=== PATIENT | female | born 1950 | race Caucasian/White ===

== ENCOUNTER 2016-04-27 12:35 | Observation (INO) | payer MEDICARE, OTHER ==
[~2016-04-27] VITALS: Ht 172.7 cm; Wt 89.8 kg
[2016-04-27 12:46] LABS: BASOPHILS % (AUTO) 0 % (0-10); EOSINOPHILS # (AUTO) 0.1 10^3/uL (0.0-0.3); EOSINOPHILS % (AUTO) 1 % (0-10); LYMPHOCYTES # (AUTO) 0.4 X 10^3 (1.0-4.0); LYMPHOCYTES % (AUTO) 4 % (12-44); MEAN CORPUSCULAR HEMOGLOBIN 26 PG (25-34); MEAN CORPUSCULAR HGB CONC 32 G/DL (32-36); MEAN CORPUSCULAR VOLUME 82 FL (80-99); MONOCYTES # (AUTO) 0.5 X 10^3 (0.0-1.0); MONOCYTES % (AUTO) 6 % (0-12); NEUTROPHILS % (AUTO) 88 % (42-75); PLATELET COUNT 250 10^3/uL (130-400); RED BLOOD COUNT 3.07 10^6/uL (4.35-5.85); RED CELL DISTRIBUTION WIDTH 17.2 % (10.0-14.5); WHITE BLOOD COUNT 7.9 10^3/uL (4.3-11.0)
--- NOTE | 2016-04-27 12:50 | Diagnostic Imaging Report ---
EXAM: CT HEAD WO-R/O STROKE INDICATION: Stroke. COMPARISON: None. FINDINGS: Large area of encephalomalacia in the right occipital and posterior temporal lobes. Chronic lacunar infarcts in the basal ganglia bilaterally. Low-attenuation region in the right cerebellar hemisphere is age-indeterminate. Generalized cerebral and cerebellar parenchymal volume loss. Moderate leukoaraiosis. No intracranial hemorrhage, mass effect, hydrocephalus or extra-axial fluid collections. The paranasal sinuses and mastoid air cells are unremarkable. IMPRESSION: 1. Low-attenuation region in the right cerebellar hemisphere is age-indeterminate and could represent an acute or chronic infarct. 2. Numerous chronic infarcts, the largest within the right occipital and posterior temporal lobes. 3. No evidence of intracranial hemorrhage. Dictated by: Dictated on workstation # [id number]
--- NOTE | 2016-04-27 12:50 | Diagnostic Imaging Report ---
EXAM: Postoperative upright radiograph of the chest. INDICATION: Confusion. FINDINGS: The heart size is moderately enlarged. There is mild pulmonary vascular congestion. There is no effusion or pneumothorax. The mediastinum and chung appear unremarkable. There is a pacemaker with 2 leads seen. IMPRESSION: Cardiomegaly with pulmonary vascular congestion. Dictated by: Dictated on workstation # [id number]
[2016-04-27 13:06] LABS: ALANINE AMINOTRANSFERASE 11 U/L (0-55); ALBUMIN 3.6 G/DL (3.2-4.5); ANION GAP 10 MMOL/L (5-14); ASPARTATE AMINO TRANSFERASE 19 U/L (5-34); BILIRUBIN,TOTAL 1.1 MG/DL (0.1-1.0); BLOOD UREA NITROGEN 22 MG/DL (7-18); BUN/CREATININE RATIO 21; CALCIUM 9.3 MG/DL (8.5-10.1); CARBON DIOXIDE 27 MMOL/L (21-32); CHLORIDE 99 MMOL/L (98-107); CREATININE SERUM 1.05 MG/DL (0.60-1.30); GFR ESTIMATED 52; GLUCOSE 186 MG/DL (70-105); POTASSIUM 4.2 MMOL/L (3.6-5.0); SODIUM 136 MMOL/L (135-145); TOTAL PROTEIN 6.7 G/DL (6.4-8.2)
[2016-04-27 13:09] LABS: INR 1.1 (0.8-1.4); PROTHROMBIN TIME PATIENT 13.8 SEC (12.2-14.7)
[2016-04-27 13:11] LABS: TROPONIN I < 0.30 NG/ML (<0.30)
[2016-04-27 13:13] LABS: BAND NEUTROPHILS 1 %; BASOPHILS % (MANUAL) 1 %; EOSINOPHILS % (MANUAL) 5 %; LYMPHOCYTES % (MANUAL) 5 %; NEUTROPHILS % (MANUAL) 80 %
[2016-04-27 13:14] LABS: ANISOCYTOSIS SLIGHT; MICROCYTOSIS SLIGHT
--- NOTE | 2016-04-27 13:20 | ED Neurological Problem ---
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 EMS reports pt was found in her car outside of her home. Pt was found to be confused w/ L sided weakness noted. EMS states pt was unable to open her eyes during their initial assessment and was unable to answer questions appropriately. EMS also reports initial o2 saturation in the 70s. Pt wears 4L of o2 at all times and states she has been having problems with her portable machine. Upon arrival to ED, pt alert and responding appropriately to questions. Pt denies any c/o. Last known well time 1125. Nursing Sepsis Screen: No Definite Risk Source: patient, EMS, old records Exam Limitations: no limitations History of Present Illness Time seen by provider: 12:38 Initial Comments This 65-year-old woman presents to the emergency room with concern for possible stroke. She was found to have altered mental status and left-sided weakness by her neighbor. She was sitting in the car at the time. Her last known well time was 11:25. She had been shopping with a friend prior to the event. She had also been to a long term to visit a friend earlier in the morning. She had some trouble with her oxygen tank while at the long term and someone there helped her adjust it. She normally uses 4 L by nasal cannula continuously. EMS removed her oxygen and placed her in the ambulance. They placed her on 3 L per nasal cannula and found her oxygen saturation to be 76 percent and rising. Fingerstick blood sugar for EMS was 181. Patient is a fairly poor historian and cannot recall many details about her medical history or her medications. Her sister, who is a nurse, eventually arrived and provided much more detail. Her primary care provider is Dr. Chamorro and her steel pickler is Dr. Chin. Allergies and Home Medications Allergies Coded Allergies: No Known Drug Allergies (Unverified , 04/27/16) Home Medications Amlodipine Besylate 10 Mg Tablet 10 MG PO DAILY (Reported) LAST FILLED 03/13/16 #30 Aspirin 81 Mg Tablet.dr 81 MG PO DAILY (Reported) Carvedilol 25 Mg Tablet 25 MG PO BID (Reported) LAST FILLED 03/13/16 #60 Clopidogrel Bisulfate 75 Mg Tablet 75 MG PO DAILY (Reported) Doxazosin Mesylate 4 Mg Tablet 2 MG PO BID (Reported) TAKES 1/2 OF A (4 MG) TABLET Folic Acid 1 Mg Tablet 1 MG PO DAILY (Reported) Hydralazine HCl 50 Mg Tablet 50 MG PO TID (Reported) HOLD FOR SBP < 130 Hydrochlorothiazide 12.5 Mg Tablet 12.5 MG PO DAILY (Reported) Isosorbide Mononitrate 60 Mg Tab 60 MG PO DAILY (Reported) LAST FILLED 03/01/16 #30 / HOLD FOR SBP < 120 Potassium Chloride 20 Meq Tablet.er 20 MEQ PO DAILY (Reported) LAST FILLED 03/20/16 #30 Ranitidine HCl 150 Mg Tablet 150 MG PO BID (Reported) LAST FILLED 03/21/16 #60 Sotalol HCl 80 Mg Tablet 80 MG PO BID (Reported) Constitutional: no symptoms reported Eyes: No Symptoms Reported Ears, Nose, Mouth, Throat: no symptoms reported Respiratory: see HPI Cardiovascular: no symptoms reported Gastrointestinal: no symptoms reported Genitourinary: no symptoms reported Musculoskeletal: no symptoms reported Skin: no symptoms reported Psychiatric/Neurological: See HPI Endocrine: No Symptoms Reported Past Tdevrlm-Krxavq-Xgdavm Hx Patient Social History Alcohol Use: Denies Use Recreational Drug Use: No Smoking Status: Former Smoker Recent Foreign Travel: No Contact w/Someone Who Travel: No Recent Infectious Disease Expo: No Recent Hopitalizations: No Seasonal Allergies Seasonal Allergies: No Surgeries HX Surgeries: Yes Surgeries: Appendectomy, Coronary Stent, Gallbladder, Pacemaker, Tonsillectomy , Vascular Surgery (right CEA) Respiratory Hx Respiratory Disorders: Yes (wears 4L o2 @ all times, tobaccoism) Cardiovascular Hx Cardiac Disorders: Yes (pacemaker) Cardiac Disorders: Coronary Artery Disease, Peripheral Vascular (carotid artery disease status post right CEA) Neurological Hx Neurological Disorders: Yes Neurological Disorders: Stroke Reproductive System Hx Reproductive Disorders: No Genitourinary Hx Genitourinary Disorders: No Gastrointestinal Hx Gastrointestinal Disorders: No Musculoskeletal Hx Musculoskeletal Disorders: No Endocrine Hx Endocrine Disorders: Yes Endocrine Disorders: Diabetes, Non-Insulin dep HEENT HX ENT Disorders: No Cancer Hx Cancer: No Psychosocial Hx Psychiatric Problems: No Blood Transfusions Hx Blood Disorders: No Physical Exam Vital Signs Vital Sign - Last 12Hours 04/27/16 04/27/16 12:35 12:49 Temp 97.7 Pulse 74 Resp 20 B/P 142/39 Pulse Ox 94 O2 Delivery Nasal Cannula O2 Flow Rate 4 Capillary Refill : Less Than 3 Seconds General Appearance: WD/WN no apparent distress HEENT: PERRL/EOMI normal ENT inspection pharynx normal Neck: normal inspection Respiratory: lungs clear normal breath sounds no respiratory distress no accessory muscle use Cardiovascular: regular rate, rhythm no edema no murmur Gastrointestinal: normal bowel sounds non tender soft Extremities: normal inspection no pedal edema 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 no motor/sensory deficits alert normal mood/affect oriented x 3 Crainal Nerves: normal hearing normal speech PERRL Coordination/Gait: normal finger to nose Motor/Sensory: no motor deficit no sensory deficit Skin: normal color warm/dry Stroke NIH Stroke Scale Assessment Select: Initial Level of Consciousness: 0=Alert Level of Consciousness-Questio: 0=Answers both month/age LOC Commands: 0=Performs both tasks Gaze: 0=Normal Visual Omer: 0=No visual loss Facial Movement (Facial Paresi: 0=Normal symmetrical mnt Motor Function-Arms Right: 0=No drift Motor Function-Arms Left: 0=No drift Motor Function-Legs Right: 0=No drift Motor Function-Legs Left: 0=No drift Limb Ataxia: 0=Absent Sensory: 0=Normal:no loss Best Language: 0=No aphasia Dysarthria: 0=Normal Extinction & Inattention: 0=No abnormality NIH Stroke Scale Score: 0 Focused Exam Lactic Acid Level Laboratory Tests Test 04/27/16 12:35 Alanine Aminotransferase (ALT/SGPT) 11U/L (0-55) Albumin 3.6G/DL (3.2-4.5) Alkaline Phosphatase 120U/L (40-136) Anion Gap 10MMOL/L (5-14) Aspartate Amino Transf (AST/SGOT) 19U/L (5-34) B-Type Natriuretic Peptide 238.1PG/ML (<100.0) H BUN/Creatinine Ratio 21 Blood Urea Nitrogen 22MG/DL (7-18) H C-Reactive Protein High Sensitivity 1.33MG/DL (0.00-0.50) H Calcium Level 9.3MG/DL (8.5-10.1) Carbon Dioxide Level 27MMOL/L (21-32) Chloride Level 99MMOL/L (98-107) Creatinine 1.05MG/DL (0.60-1.30) Estimat Glomerular Filtration Rate 52 Glucose Level 186MG/DL (70-105) H Potassium Level 4.2MMOL/L (3.6-5.0) Sodium Level 136MMOL/L (135-145) Total Bilirubin 1.1MG/DL (0.1-1.0) H Total Protein 6.7G/DL (6.4-8.2) Troponin I < 0.30NG/ML (<0.30) Progress/Results/Core Measures Results/Orders Lab Results Laboratory Tests Test 04/27/16 12:35 04/27/16 12:54 04/27/16 13:19 Range/Units Alanine Aminotransferase (ALT/SGPT) 11 0-55 U/L Albumin 3.6 3.2-4.5 G/DL Alkaline Phosphatase 120 40-136 U/L Anion Gap 10 5-14 MMOL/L Anisocytosis SLIGHT Aspartate Amino Transf (AST/SGOT) 19 5-34 U/L B-Type Natriuretic Peptide 238.1 H <100.0 PG/ML BUN/Creatinine Ratio 21 Band Neutrophils 1 % Basophils # (Auto) 0.0 0.0-0.1 10^3/uL Basophils % (Manual) 1 % Basophils (%) (Auto) 0 0-10 % Blood Urea Nitrogen 22 H 7-18 MG/DL C-Reactive Protein High Sensitivity 1.33 H 0.00-0.50 MG/DL Calcium Level 9.3 8.5-10.1 MG/DL Carbon Dioxide Level 27 21-32 MMOL/L Chloride Level 99 98-107 MMOL/L Creatinine 1.05 0.60-1.30 MG/DL Elliptocytes SLIGHT Eosinophils # (Auto) 0.1 0.0-0.3 10^3/uL Eosinophils % (Manual) 5 % Eosinophils (%) (Auto) 1 0-10 % Estimat Glomerular Filtration Rate 52 Glucose Level 186 H 70-105 MG/DL Hematocrit 25 L 35-52 % Hemoglobin 8.0 L 11.5-16.0 G/DL Lymphocytes # (Auto) 0.4 L 1.0-4.0 X 10^3 Lymphocytes % (Manual) 5 % Lymphocytes (%) (Auto) 4 L 12-44 % Mean Corpuscular Hemoglobin 26 25-34 PG Mean Corpuscular Hemoglobin Concent 32 32-36 G/DL Mean Corpuscular Volume 82 80-99 FL Mean Platelet Volume 9.0 7.4-10.4 FL Microcytosis SLIGHT Monocytes # (Auto) 0.5 0.0-1.0 X 10^3 Monocytes % (Manual) 8 % Monocytes (%) (Auto) 6 0-12 % Neutrophils # (Auto) 7.0 1.8-7.8 X 10^3 Neutrophils % (Manual) 80 % Neutrophils (%) (Auto) 88 H 42-75 % Platelet Count 250 130-400 10^3/uL Potassium Level 4.2 3.6-5.0 MMOL/L Red Blood Count 3.07 L 4.35-5.85 10^6/uL Red Cell Distribution Width 17.2 H 10.0-14.5 % Sodium Level 136 135-145 MMOL/L Total Bilirubin 1.1 H 0.1-1.0 MG/DL Total Protein 6.7 6.4-8.2 G/DL Troponin I < 0.30 <0.30 NG/ML White Blood Count 7.9 4.3-11.0 10^3/uL Activated Partial Thromboplast Time 20 L 24-35 SEC D-Dimer 1.04 H 0.00-0.49 UG/ML INR Comment 1.1 0.8-1.4 Prothrombin Time 13.8 12.2-14.7 SEC Urine Bacteria TRACE /HPF Urine Bilirubin NEGATIVE NEGATIVE Urine Casts NONE /LPF Urine Clarity CLEAR Urine Color YELLOW Urine Crystals NONE /LPF Urine Culture Indicated NO Urine Glucose (UA) NEGATIVE NEGATIVE Urine Ketones NEGATIVE NEGATIVE Urine Leukocyte Esterase 1+ H NEGATIVE Urine Mucus NEGATIVE /LPF Urine Nitrite NEGATIVE NEGATIVE Urine Protein 3+ H NEGATIVE Urine RBC NONE /HPF Urine RBC (Auto) NEGATIVE NEGATIVE Urine Specific Roland 1.020 1.016-1.022 Urine Squamous Epithelial Cells 2-5 /HPF Urine Urobilinogen 1 NORMAL MG/DL Urine WBC 0-2 /HPF Urine pH 5 5-9 My Orders Orders-NATHALY ANTHONY MD Ct Head Wo-R/O Stroke (04/27/16 12:38) Cbc With Automated Diff (04/27/16 12:38) Protime With Inr (04/27/16 12:38) Partial Thromboplastin Time (04/27/16 12:38) Comprehensive Metabolic Panel (04/27/16 12:38) Fibrin Degradation Products (04/27/16 12:38) Troponin I (04/27/16 12:38) Ua Culture If Indicated (04/27/16 12:38) Chest 1 View, Ap/Pa Only (04/27/16 12:38) Ekg Tracing (04/27/16 12:38) Nothing By Mouth (04/27/16 Dinner) Accucheck Stat ONCE (04/27/16 12:38) Saline Lock/Iv-Start (04/27/16 12:38) Saline Lock/Iv-Start (04/27/16 12:38) Vital Signs-Stroke Q1H (04/27/16 12:38) O2 (04/27/16 12:38) Intake & Output 06,14,22 (04/27/16 12:38) Monitor-Rhythm Ecg Trace Only (04/27/16 12:38) Dysphagia Screening Tool (04/27/16 12:38) Manual Differential (04/27/16 12:35) BNP (04/27/16 13:21) Hs C Reactive Protein (04/27/16 13:21) Us Carotid Luis Complete [id number] (04/27/16 14:05) Furosemide Injection (Lasix Injection) (04/27/16 15:45) Aspirin Tablet (Aspirin Tablet) (04/27/16 15:45) Amlodipine Tablet (Norvasc Tablet) (04/27/16 16:00) Doxazosin Tablet (Cardura Tablet) (04/27/16 16:00) Isosorbide Mononitrate Tablet (Imdur Tab (04/27/16 16:00) Amlodipine Tablet (Norvasc Tablet) (04/27/16 16:00) Medications Given in ED Vital Signs/I&O Vital Sign - Last 12Hours 04/27/16 04/27/16 04/27/16 12:35 12:49 16:50 Temp 97.7 Pulse 74 76 Resp 20 18 B/P 142/39 Pulse Ox 94 94 98 O2 Delivery Nasal Cannula Nasal Cannula O2 Flow Rate 4 4 Blood Pressure Mean: 73 Progress Note : Time: 15:51 Progress Note Stroke activation was paged when the patient arrived. She was taken immediately to CT scan. CT showed a possible cerebellar infarct. No definite acute changes and no hemorrhages were noted. NIH stroke score was zero. Dr. Serna, [facility] stroke neurologist, was consulted by phone. He suggested MRI would be appropriate at this point. Because the cerebellar infarct appeared to be subacute (already visible on CT) patient was not a TPA candidate, especially since her stroke score was zero. Patient reported she has history of carotid stenosis and is to see a vascular surgeon or Dr. Chin soon to have her carotids reevaluated. For this reason bilateral carotid ultrasounds were performed. No significant stenosis was identified. Patient has not taken her medications this morning. Aspirin was administered in the ER. Pulmonary congestion was noted on chest x-ray along with elevated BNP. IV Lasix was therefore ordered. Patient was becoming increasingly hypertensive. Again, she has not taken her morning medications. As her medication list was confirmed by the pharmacy district manager, her oral medications were ordered including doxazosin 2 mg, isosorbide mononitrate 60 mg, and amlodipine [address] Herrera was agreeable to admission for observation. She agreed with MRI. She requested consultation with Dr. Pastrana. Case was discussed with Dr. Pastrana at 16:00. He agrees with the medications ordered to be given in the emergency room and is agreeable to consultation. Patient had no further neurologic events while in the emergency room. The left-sided weakness appeared to be transient and was only observed by EMS staff. It seemed to correlate with her hypoxia which may have exacerbated symptoms of old stroke evident on CT. Patient has had no Plavix or aspirin in 24 hours. Aspirin was administered in the ER. ECG Initial ECG Impression Date: Apr 27, 2016 Initial ECG Impression Time: 12:50 Initial ECG Rate: 76 Initial ECG Rhythm: Normal Sinus Initial ECG Intervals First-degree AV block with MI interval greater than 220 Comment Sinus rhythm with no ST elevation or depression. PAC noted. Borderline prolonged QT and first-degree AV block. Diagnostic Imaging Diagonstic Imaging: CT Plain Films/CT/US/NM/MRI: head Comments CT head viewed by me and report reviewed. See report below: NAME: TRISTON LLOYD [facility] REC#: [id number] PT STATUS: REG ER : 1950 PHYSICIAN: NATHALY ANTHONY MD ADMIT DATE: 04/27/16/ER Draft Date of Exam:04/27/16 CT HEAD WO-R/O STROKE EXAM: CT HEAD WO-R/O STROKE INDICATION: Stroke. COMPARISON: None. FINDINGS: Large area of encephalomalacia in the right occipital and posterior temporal lobes. Chronic lacunar infarcts in the basal ganglia bilaterally. Low-attenuation region in the right cerebellar hemisphere is age-indeterminate. Generalized cerebral and cerebellar parenchymal volume loss. Moderate leukoaraiosis. No intracranial hemorrhage, mass effect, hydrocephalus or extra-axial fluid collections. The paranasal sinuses and mastoid air cells are unremarkable. IMPRESSION: 1. Low-attenuation region in the right cerebellar hemisphere is age-indeterminate and could represent an acute or chronic infarct. 2. Numerous chronic infarcts, the largest within the right occipital and posterior temporal lobes. 3. No evidence of intracranial hemorrhage. Dictated on workstation # [id number] Dict: 04/27/16 1242 Trans: 04/27/16 1249 [id number] Interpreted by: NAYAN BORRERO MD Diagonstic Imaging: Xray Plain Films/CT/US/NM/MRI: chest Comments Chest x-ray viewed by me and report reviewed. See report below: NAME: TRISTON LLOYD [facility] REC#: [id number] PT STATUS: REG ER : 1950 PHYSICIAN: NATHALY ANTHONY MD ADMIT DATE: 04/27/16/ER Signed Date of Exam:04/27/16 CHEST 1 VIEW, AP/PA ONLY EXAM: Postoperative upright radiograph of the chest. INDICATION: Confusion. FINDINGS: The heart size is moderately enlarged. There is mild pulmonary vascular congestion. There is no effusion or pneumothorax. The mediastinum and chung appear unremarkable. There is a pacemaker with 2 leads seen. IMPRESSION: Cardiomegaly with pulmonary vascular congestion. Dictated by: Dictated on workstation # [id number] Dict: 04/27/16 1246 Trans: 04/27/16 1304 [id number] Interpreted by: RAGHAV LÓPEZ MD Electronically signed by: RAGHAV LÓPEZ MD 04/27/16 1304 Diagonstic Imaging: Ultrasound Plain Films/CT/US/NM/MRI: other (carotid ultrasound) Comments Bilateral carotid ultrasound discussed with the renal technician and report reviewed. See report below: NAME: TRISTON LOLYD [facility] REC#: [id number] PT STATUS: REG ER : 1950 PHYSICIAN: NATHALY ANTHONY MD ADMIT DATE: 04/27/16/ER Draft Date of Exam:04/27/16 US CAROTID LUIS COMPLETE [id number] PROCEDURE: US Carotid Duplex Bilateral. TECHNIQUE: Multiple real-time grayscale images were obtained over the carotid arteries in various projections bilaterally. Additional duplex Doppler and color Doppler images were also obtained. INDICATION: Confusion, arm weakness. FINDINGS: There is generally mild mixed plaque seen in the internal carotid arteries on both sides. Color Doppler demonstrate patent common, internal, and external carotid arteries bilaterally. There is antegrade flow seen in the vertebral artery on both sides. Peak systolic velocities in the right ICA are 106, 107, and 107 cm/s, and the left is 141, 122, and 98 cm/s from proximal/ distal. ICA/CCA ratios are up to 0.9 on the right and 0.9 on the left. There is note of elevated velocity in the proximal left external carotid artery to 155 cm/s suggestive of underlying moderate stenosis. IMPRESSION: Atherosclerotic plaque is seen in the internal carotid arteries with estimated underlying stenosis below 40% bilaterally. Dictated on workstation # [id number] Dict: 04/27/16 1440 Trans: 04/27/16 1449 [id number] Interpreted by: RAGHAV LÓPEZ MD Departure Communication Time/Spoke to Admitting Phy: 14:56 Communication Case was reviewed with Dr. Herrera who request consultation with Dr. Pastrana. She agrees with admission for observation and MRI. Time/Spoke to Consulting Physi: 15:00 Communication/Consulting Case reviewed with Dr. Pastrana who is agreeable to consultation and agrees with therapies for pulmonary congestion and hypertension. Impression Impression: Primary Impression: Hypoxia Additional Impressions: transient left-sided weakness Anemia Qualified Code: D64.9 - Anemia, unspecified Pulmonary congestion Hypertensive urgency Disposition: ADMITTED INPATIENT Condition: Improved Decision to Admit Reason: Admit from ER (General) Decision to Admit/Date: Apr 29, 2016 Time/Decision to Admit Time: 14:56 Departure-Patient Inst. Referrals: CAMILO CHAMORRO MD (PCP/Family) Primary Care Physician NATHALY ANTHONY MD Apr 27, 2016 13:20
[2016-04-27 13:28] LABS: BILIRUBIN,URINE NEGATIVE (NEGATIVE); KETONES,URINE NEGATIVE (NEGATIVE); LEUKOCYTE ESTERASE ,URINE 1+ (NEGATIVE); NITRITE,URINE NEGATIVE (NEGATIVE); PH,URINE 5 (5-9); PROTEIN,URINE 3+ (NEGATIVE); UROBILINOGEN,URINE 1 MG/DL (NORMAL)
[2016-04-27 13:40] LABS: WBC,URINE 0-2 /HPF
--- NOTE | 2016-04-27 14:50 | Diagnostic Imaging Report ---
PROCEDURE: US Carotid Duplex Bilateral. TECHNIQUE: Multiple real-time grayscale images were obtained over the carotid arteries in various projections bilaterally. Additional duplex Doppler and color Doppler images were also obtained. INDICATION: Confusion, arm weakness. FINDINGS: There is generally mild mixed plaque seen in the internal carotid arteries on both sides. Color Doppler demonstrate patent common, internal, and external carotid arteries bilaterally. There is antegrade flow seen in the vertebral artery on both sides. Peak systolic velocities in the right ICA are 106, 107, and 107 cm/s, and the left is 141, 122, and 98 cm/s from proximal/ distal. ICA/CCA ratios are up to 0.9 on the right and 0.9 on the left. There is note of elevated velocity in the proximal left external carotid artery to 155 cm/s suggestive of underlying moderate stenosis. IMPRESSION: Atherosclerotic plaque is seen in the internal carotid arteries with estimated underlying stenosis below 40% bilaterally. Dictated by: Dictated on workstation # [id number]
[2016-04-27] MEDS ORDERED: SOTA80TA PO (15:14)
[2016-04-27] MEDS ORDERED: HYDR12.56 PO (15:14)
[2016-04-27] MEDS ORDERED: POTA-51 PO (15:14)
[2016-04-27] MEDS ORDERED: METF500T4 PO (15:14)
[2016-04-27] MEDS ORDERED: FOLI1TAB24 PO (15:14)
[2016-04-27] MEDS ORDERED: CLOP75TA28 PO (15:14)
[2016-04-27] MEDS ORDERED: RANI150T11 PO (15:14)
[2016-04-27] MEDS ORDERED: HYDR-3924 PO (15:14)
[2016-04-27] MEDS ORDERED: AMLO10TA2 PO (15:37)
[2016-04-27] MEDS ORDERED: CARV25TA PO (15:37)
[2016-04-27] MEDS ORDERED: ISM60TCR PO (15:37)
[2016-04-27] MEDS ORDERED: DOXA4TAB2 PO (15:37)
[2016-04-27] MEDS ORDERED: ASPIRIN 325 MG (5 GR) TABLET PO ONE (15:45)
[2016-04-27] MEDS ORDERED: FUROSEMIDE 40 MG/4 ML INJ (LASIX) IVP ONE (15:45)
[2016-04-27] MEDS ORDERED: ASPI-983 PO (15:53)
[2016-04-27] MEDS ORDERED: amLODIPine 5 MG (NORVASC) TAB PO ONE ×2 (16:00)
[2016-04-27] MEDS ORDERED: ISOSORBIDE MONONITRATE 60 MG (IMDUR) TAB PO ONE (16:00)
[2016-04-27] MEDS ORDERED: doxAzosin 2 MG (CARDURA) TAB PO ONE (16:00)
[2016-04-27] MEDS ORDERED: CATHETER FLUSH 10 ML SYR IV PRN (17:15)
[2016-04-27] MEDS ORDERED: FLU TRIvalent (5 YOA+) 2016-17 (AFLURIA) 0.5 ML IM ONE (19:45)
[2016-04-27 20:23] VITALS: BP 163/48
[2016-04-27] MEDS ORDERED: NON-FORMULARY MEDICATION 1 EA EA (Hydralazine HCl 50 MG) PO SCH (21:00)
[2016-04-27] MEDS ORDERED: NON-FORMULARY MEDICATION 1 EA EA (Carvedilol 25 MG) PO SCH (21:00)
[2016-04-27] MEDS: hydrALAZINE (APRESOLINE) 25 MG TAB PO SCH (21:02)
[2016-04-27] MEDS: CARVEDILOL 12.5 MG (COREG) TABLET PO SCH (21:03)
[2016-04-27] MEDS: CATHETER FLUSH 10 ML SYR IV SCH (21:07)
[2016-04-28] VITALS: BP 140/42
[2016-04-28 04:00] VITALS: BP 138/61
[2016-04-28] MEDS: CATHETER FLUSH 10 ML SYR IV SCH (06:58)
[2016-04-28 07:35] LABS: BASOPHILS % (AUTO) 0 % (0-10); EOSINOPHILS # (AUTO) 0.1 10^3/uL (0.0-0.3); EOSINOPHILS % (AUTO) 2 % (0-10); LYMPHOCYTES # (AUTO) 0.4 X 10^3 (1.0-4.0); LYMPHOCYTES % (AUTO) 7 % (12-44); MEAN CORPUSCULAR HEMOGLOBIN 26 PG (25-34); MEAN CORPUSCULAR HGB CONC 31 G/DL (32-36); MEAN CORPUSCULAR VOLUME 83 FL (80-99); MEAN PLATELET VOLUME 8.3 FL (7.4-10.4); MONOCYTES # (AUTO) 0.4 X 10^3 (0.0-1.0); MONOCYTES % (AUTO) 8 % (0-12); NEUTROPHILS # (AUTO) 4.9 X 10^3 (1.8-7.8); NEUTROPHILS % (AUTO) 83 % (42-75); PLATELET COUNT 228 10^3/uL (130-400); RED CELL DISTRIBUTION WIDTH 17.2 % (10.0-14.5); WHITE BLOOD COUNT 5.8 10^3/uL (4.3-11.0)
[2016-04-28 07:53] LABS: ALBUMIN 3.3 G/DL (3.2-4.5); CALCIUM 8.7 MG/DL (8.5-10.1); CREATININE SERUM 1.03 MG/DL (0.60-1.30); MAGNESIUM 1.5 MG/DL (1.8-2.4); PHOSPHORUS 3.3 MG/DL (2.3-4.7); POTASSIUM 4.1 MMOL/L (3.6-5.0); TOTAL PROTEIN 5.9 G/DL (6.4-8.2)
--- NOTE | 2016-04-28 08:25 | Consultation-Cardiology ---
HPI-Cardiology Cardiology Consultation Date of Consultation 04/28/16 Date of Admission Indication: coronary artery disease HPI 65-year-old lady with extensive cardiac history, extensive peripheral arterial disease history, had history of pacemaker. Patient was found by her neighbor in her car she was confused, apparently she was not receiving appropriate oxygen amount through her tank. She does not recall the event, expressed that she went visited the patient in the morning then she went shopping and she was found by her neighbor in the car but does not recall the event. She denied any chest pain, palpitation, she has chronic dyspnea for which she uses oxygen. Had a dual-chamber pacemaker. Home Medications & Allergies Allergies: Coded Allergies: No Known Drug Allergies (Unverified , 04/27/16) Home Medication List Reviewed: Yes BHH-Mssdpj-Bqskki Hx Patient Social History Alcohol Use: Denies Use Recreational Drug Use: No Smoking Status: Former Smoker Recent Foreign Travel: No Recent Infectious Disease Expo: No Recent Hopitalizations: No Physical Abuse Screen: No Sexual Abuse: No Past Medical History past medical history is discussed below Family Medical History Family Medical Hx noncontributory to her current condition Constitutional: see HPI malaise weakness EENTM: no symptoms reported see HPI Respiratory: see HPINo cough, dyspnea on exertionNo hemoptysis, orthopneaNo phlegm, short of breathNo stridor, No wheezing, other (using oxygen) Cardiovascular: see HPINo chest pain, No edema, No Hx of Intervention, No palpitations, No syncope, No vascular heart diseas, other (4 extremities pain) Gastrointestinal: no symptoms reported see HPI Genitourinary: no symptoms reported see HPI Musculoskeletal: see HPI back pain joint pain muscle pain Skin: no symptoms reported see HPI Psychiatric/Neurological: No Symptoms Reported See HPI Reviewed Test Results Reviewed Test Results Lab Laboratory Tests Test 04/27/16 12:35 04/27/16 12:54 04/27/16 13:19 04/28/16 07:28 Range/Units Alanine Aminotransferase (ALT/SGPT) 11 11 0-55 U/L Albumin 3.6 3.3 3.2-4.5 G/DL Alkaline Phosphatase 120 111 40-136 U/L Anion Gap 10 9 5-14 MMOL/L Anisocytosis SLIGHT Aspartate Amino Transf (AST/SGOT) 19 17 5-34 U/L B-Type Natriuretic Peptide 238.1 H <100.0 PG/ML BUN/Creatinine Ratio 21 20 Band Neutrophils 1 % Basophils # (Auto) 0.0 0.0 0.0-0.1 10^3/uL Basophils % (Manual) 1 % Basophils (%) (Auto) 0 0 0-10 % Blood Urea Nitrogen 22 H 21 H 7-18 MG/DL C-Reactive Protein High Sensitivity 1.33 H 0.00-0.50 MG/DL Calcium Level 9.3 8.7 8.5-10.1 MG/DL Carbon Dioxide Level 27 30 21-32 MMOL/L Chloride Level 99 99 98-107 MMOL/L Creatinine 1.05 1.03 0.60-1.30 MG/DL Elliptocytes SLIGHT Eosinophils # (Auto) 0.1 0.1 0.0-0.3 10^3/uL Eosinophils % (Manual) 5 % Eosinophils (%) (Auto) 1 2 0-10 % Estimat Glomerular Filtration Rate 52 53 Glucose Level 186 H 187 H 70-105 MG/DL Hematocrit 25 L 24 L 35-52 % Hemoglobin 8.0 L 7.4 L 11.5-16.0 G/DL Lymphocytes # (Auto) 0.4 L 0.4 L 1.0-4.0 X 10^3 Lymphocytes % (Manual) 5 % Lymphocytes (%) (Auto) 4 L 7 L 12-44 % Mean Corpuscular Hemoglobin 26 26 25-34 PG Mean Corpuscular Hemoglobin Concent 32 31 L 32-36 G/DL Mean Corpuscular Volume 82 83 80-99 FL Mean Platelet Volume 9.0 8.3 7.4-10.4 FL Microcytosis SLIGHT Monocytes # (Auto) 0.5 0.4 0.0-1.0 X 10^3 Monocytes % (Manual) 8 % Monocytes (%) (Auto) 6 8 0-12 % Neutrophils # (Auto) 7.0 4.9 1.8-7.8 X 10^3 Neutrophils % (Manual) 80 % Neutrophils (%) (Auto) 88 H 83 H 42-75 % Platelet Count 250 228 130-400 10^3/uL Potassium Level 4.2 4.1 3.6-5.0 MMOL/L Red Blood Count 3.07 L 2.90 L 4.35-5.85 10^6/uL Red Cell Distribution Width 17.2 H 17.2 H 10.0-14.5 % Sodium Level 136 138 135-145 MMOL/L Total Bilirubin 1.1 H 1.0 0.1-1.0 MG/DL Total Protein 6.7 5.9 L 6.4-8.2 G/DL Troponin I < 0.30 <0.30 NG/ML White Blood Count 7.9 5.8 4.3-11.0 10^3/uL Activated Partial Thromboplast Time 20 L 24-35 SEC D-Dimer 1.04 H 0.00-0.49 UG/ML INR Comment 1.1 0.8-1.4 Prothrombin Time 13.8 12.2-14.7 SEC Urine Bacteria TRACE /HPF Urine Bilirubin NEGATIVE NEGATIVE Urine Casts NONE /LPF Urine Clarity CLEAR Urine Color YELLOW Urine Crystals NONE /LPF Urine Culture Indicated NO Urine Glucose (UA) NEGATIVE NEGATIVE Urine Ketones NEGATIVE NEGATIVE Urine Leukocyte Esterase 1+ H NEGATIVE Urine Mucus NEGATIVE /LPF Urine Nitrite NEGATIVE NEGATIVE Urine Protein 3+ H NEGATIVE Urine RBC NONE /HPF Urine RBC (Auto) NEGATIVE NEGATIVE Urine Specific [place] 1.020 1.016-1.022 Urine Squamous Epithelial Cells 2-5 /HPF Urine Urobilinogen 1 NORMAL MG/DL Urine WBC 0-2 /HPF Urine pH 5 5-9 Magnesium Level 1.5 L 1.8-2.4 MG/DL Phosphorus Level 3.3 2.3-4.7 MG/DL Physical Exam Vital Signs Vital Sign - Last 12Hours 04/27/16 04/27/16 12:35 12:49 Temp 97.7 Pulse 74 Resp 20 B/P 142/39 Pulse Ox 94 O2 Delivery Nasal Cannula O2 Flow Rate 4 Capillary Refill : Less Than 3 Seconds General Appearance: WD/WN Mild Distress Eyes: Bilateral Eye EOMI, Bilateral Eye Normal Inspection, Bilateral Eye PERRL HEENT: PERRL/EOMI TMs Normal Normal ENT Inspection Pharynx Normal Neck: Full Range of Motion Normal Inspection Non Tender Supple Carotid Bruit Respiratory: Chest Non Tender Lungs Clear Normal Breath Sounds No Accessory Muscle Use No Respiratory Distress Cardiovascular: Regular Rate, Rhythm No Edema No Gallop No JVD Normal Peripheral Pulses Systolic Murmur Gastrointestinal: Normal Bowel Sounds No Organomegaly No Pulsatile Mass Non Tender Soft Back: Normal Inspection No CVA Tenderness No Vertebral Tenderness Extremity: Normal Capillary Refill Normal Inspection Normal Range of Motion Non Tender No Calf Tenderness No Pedal Edema Neurologic/Psychiatric: Alert Oriented x3 No Motor/Sensory Deficits Normal Mood/Affect Skin: Normal Color Warm/Dry Lymphatic: No Adenopathy A/P-Cardiology Admission Diagnosis change in mental status Sick sinus syndrome Peripheral arterial disease Coronary artery disease Assessment/Plan change in mental status, questionable CVA versus hypoxemia induced. CT scan was nondiagnostic, patient has been awaiting for an MRI. She has a pacemaker that was implanted about 10 years ago, unlikely to be MRI safe. Patient should not have an MRI done. I will try to obtain copy of her record from Dr. Micheal paula Dual chamber pacemaker, implanted about 10 years ago, unknown reason probably underlying sick sinus syndrome, I will try to obtain copy of the record from Dr. Micheal paula Patient has been on sotalol, most probably has underlying atrial fibrillation, has been in sinus rhythm here. Not receiving oral anticoagulation. Maintained on aspirin and Plavix. Peripheral arterial disease, multiple interventions in the past. Recent intervention by Dr. Chin. Continue on aspirin and Plavix Coronary artery disease, patient had multiple interventions in the past. COPD, oxygen dependent. Using 3-4 L nasal cannula. Hypertension, on multiple medication including 2 different beta blockers. Tolerating them well due to the 5 that she has a pacemaker. Hyperlipidemia. Diabetes mellitus. Clinical Quality Measures DVT/VTE Risk/Contraindication: Risk Factor Score Per Nursin RFS Level Per Nursing on Admit: 2=Moderate ERIC LOWRY MD Apr 28, 2016 08:25
[2016-04-28 08:45] VITALS: BP 166/59
[2016-04-28] MEDS: hydrALAZINE (APRESOLINE) 25 MG TAB PO SCH (08:55)
[2016-04-28] MEDS: CARVEDILOL 12.5 MG (COREG) TABLET PO SCH (08:55)
[2016-04-28] MEDS ORDERED: CLOPIDOGREL 75 MG (PLAVIX) TABLET PO SCH (09:00)
[2016-04-28] MEDS ORDERED: HYDROCHLOROTHIAZIDE 12.5 MG (HCTZ) CAP PO SCH (09:00)
[2016-04-28] MEDS ORDERED: NON-FORMULARY MEDICATION 1 EA EA (Hydrochlorothiazide 12.5 MG) PO SCH (09:00)
[2016-04-28] MEDS ORDERED: SOTALOL 80 MG (BETAPACE) TAB PO SCH (09:00)
[2016-04-28] MEDS ORDERED: ISOSORBIDE MONONITRATE 60 MG (IMDUR) TAB PO SCH (09:00)
[2016-04-28] MEDS ORDERED: amLODIPine 10 MG (NORVASC) TAB PO SCH (09:00)
[2016-04-28] MEDS ORDERED: ASPIRIN E.C. 81 MG (ECOTRIN) TAB PO SCH (09:00)
--- NOTE | 2016-04-28 12:14 | Short Stay Summary-Hospitalist ---
HPI History of Present Illness: HPI/Chief Complaint CC: Confusion HPI: This is a very medical complicated 65[address] Lopez with long standing hx of severe vascular disease that presented to the ER with hypoxia and possible CVA. She was unable to provide any hx at all so I conferred with PCP and was updated on med list. She could not have MRI because she has pacemaker. CT scan of brain showed past infarction and Dr. Pastrana saw her in consultation. program arranger: Dr. Pastrana wants pacemaker set up. Pt could not have MRI because she had pacemaker. Patient Interview: Pt states she is ready to be DC home. Pt states she lives by herself. Pt states she has family and good neighbors to check in on her. Pt was encouraged to set up follow up appointments with Dr. Lopez and Dr. Arenas Cardiology. Physical exam was stable. Pt denies using breathing tx at home. Pt states she only has issues with her portable O2 machines. Pt states she was visiting a friend at [place] and running errands when she ran out of O2. Pt was informed that portable O2 is for a shorter time period. Pt states her sister will pick her up. Considering no evidence of new CVA and Cardiology agrees with plan will send home with follow up with Cardiology and Pulmonology. Scribed by Otis Bashir under the direct supervision of Dr. Alvarez. Source: patient Exam Limitations: no limitations Date Seen 04/28/16 Attending Physician Katlyn Alvarez Lisa A MD Referring Physician Date of Admission Apr 27, 2016 at 16:23 Home Medications & Allergies Home Medications Reviewed patient Home Medication Reconciliation Form Allergies Coded Allergies: No Known Drug Allergies (Unverified , 04/27/16) Past Gwukcmq-Btniuk-Btlxwr Hx Patient Social History Marrital Status: single Employed/Student: retired Alcohol Use: Denies Use Recreational Drug Use: No Smoking Status: Former Smoker Physical Abuse Screen: No Sexual Abuse: No Recent Foreign Travel: No Contact w/other who traveled: No Recent Hopitalizations: No Recent Infectious Disease Expo: No Seasonal Allergies Seasonal Allergies: No Surgeries HX Surgeries: Yes Surgeries: Appendectomy, Coronary Stent, Gallbladder, Pacemaker, Tonsillectomy , Vascular Surgery (right CEA) Respiratory Hx Respiratory Disorders: Yes (wears 4L o2 @ all times) Respiratory Disorders: COPD, Emphysema, Pneumonia Cardiovascular Hx Cardiovascular Disorders: Yes (pacemaker) Cardiac Disorders: Coronary Artery Disease, Peripheral Vascular (carotid artery disease status post right CEA) Neurological Hx Neurological Disorders: No Reproductive System Hx Reproductive Disorders: No Genitourinary Hx Genitourinary Disorders: No Gastrointestinal Hx Gastrointestinal Disorders: No Musculoskeletal Hx Musculoskeletal Disorders: No Endocrine Hx Endocrine Disorders: Yes Endocrine Disorders: Diabetes, Non-Insulin dep HEENT HX ENT Disorders: No Cancer Hx Cancer: No Psychosocial Hx Psychiatric Problems: No Blood Transfusions Hx Blood Disorders: No Review of Systems Constitutional: see HPI EENTM: no symptoms reported Respiratory: short of breath Cardiovascular: no symptoms reported Gastrointestinal: no symptoms reported Genitourinary: no symptoms reported Musculoskeletal: no symptoms reported Skin: no symptoms reported Psychiatric/Neurological: No Symptoms Reported All Other Systems Reviewed Negative Unless Noted: Yes Physical Exam Physical Exam Vital Signs Vital Sign - Last 12Hours 04/27/16 04/27/16 12:35 12:49 Temp 97.7 Pulse 74 Resp 20 B/P 142/39 Pulse Ox 94 O2 Delivery Nasal Cannula O2 Flow Rate 4 Capillary Refill : Less Than 3 Seconds General Appearance: No Apparent Distress WD/WN Chronically ill Eyes: Bilateral Eye Normal Inspection, Bilateral Eye PERRL HEENT: PERRL/EOMI Normal ENT Inspection Pharynx Normal Neck: Full Range of Motion Normal Inspection Non Tender Supple Carotid Bruit Respiratory: Chest Non Tender Lungs Clear Normal Breath Sounds No Accessory Muscle Use No Respiratory Distress Cardiovascular: Regular Rate, Rhythm No Edema No Gallop No JVD No Murmur Normal Peripheral Pulses Gastrointestinal: Normal Bowel Sounds No Organomegaly No Pulsatile Mass Non Tender Soft Back: Normal Inspection No CVA Tenderness No Vertebral Tenderness Extremity: Normal Capillary Refill Normal Inspection Normal Range of Motion Non Tender No Calf Tenderness No Pedal Edema Neurologic/Psychiatric: Alert Oriented x3 No Motor/Sensory Deficits Normal Mood/Affect Skin: Normal Color Warm/Dry Lymphatic: No Adenopathy Results Results/Procedures Lab Laboratory Tests 04/27/16 12:35 04/28/16 07:28 Short Stay Diagnosis Discharge Diagnosis-Short Stay Admission Diagnosis Assessment: Hypoxia likely due to lack of oxygen and portable take when out running errands yesterday Severe peripheral vascular disease managed by Dr. Chin COPD oxygen dependent Hyperlipidemia Cardiac arrhythmia on sotalol Final Discharge Diagnosis Assessment: Hypoxia likely due to lack of oxygen and portable take when out running errands yesterday no evidence of CVA acute Severe peripheral vascular disease managed by Dr. Chin COPD oxygen dependent Hyperlipidemia Cardiac arrhythmia on sotalol Conclusion Plan Plan: Discharge home Home oxygen maintained Family support Follow-up with primary care provider and Dr. Chin\ Hold metformin until resuming regular diet and fluids Clinical Quality Measures DVT/VTE Risk/Contraindication: Risk Factor Score Per Nursin RFS Level Per Nursing on Admit: 2=Moderate KATLYN ALVAREZ DO Apr 28, 2016 12:14
== END 2016-04-28 10:47 | disposition home or self-care (01) ==
LOC: ER 12:38 → ICU 16:23 → UNDOADMOB 16:23 → ICU 17:00 → UNDODISOB 04-28 12:00
PROVIDERS: ADMIT Internal Medicine; ATTEND Internal Medicine
DX: R09.02 Hypoxemia (principal); I73.9 Peripheral vascular disease, unspecified; J44.9 Chronic obstructive pulmonary disease, unspecified; Z99.81 Dependence on supplemental oxygen; E78.5 Hyperlipidemia, unspecified; I49.9 Cardiac arrhythmia, unspecified; E11.9 Type 2 diabetes mellitus without complications; I25.10 Atherosclerotic heart disease of native coronary artery without angina pectoris; F17.210 Nicotine dependence, cigarettes, uncomplicated; I10 Essential (primary) hypertension; Z95.5 Presence of coronary angioplasty implant and graft; Z95.0 Presence of cardiac pacemaker
CPT/HCPCS: 36415; 70450; 71010; 80053; 81000; 83735; 83880; 84100; 84484; 85007; 85025; 85027; 85379; 85610; 85730; 86141; 93005; 93041; 93880; 96374; 99211; G0378